=== PATIENT | female | born 1975 | race African-American/Black ===

== ENCOUNTER 2024-05-16 11:49 | Inpatient (IN) | payer OTHER ==
[2024-05-16 12:56] LABS: ABSOLUTE IMMATURE GRANULOCYTES 0.87 x10^3/uL (0.0-0.031); BASOPHILS # 0.05 x10^3/uL (0.01-0.08); EOSINOPHIL % 0.1 % (0.7-5.8); EOSINOPHILS # 0.02 x10^3/uL (0.04-0.36); HEMATOCRIT 30.5 % (34.1-44.9); HEMOGLOBIN 9.7 g/dL (11.2-15.7); MCHC 31.8 g/dl (32.2-35.5); MEAN CELL VOLUME 87.1 fl (79.4-94.8); MONOCYTE # 0.69 x10^3/uL (0.24-0.86); MONOCYTE % 4.8 % (4.7-12.5); PLATELET COUNT # 125 x10^3/uL (182-369)
[2024-05-16 12:59] LABS: VENOUS BASE EXCESS -15.8 mmol/L (-2-2); VENOUS PCO2 31.8 mmHg (38-52)
[2024-05-16 13:08] LABS: INR 1.09 (0.83-1.09)
[2024-05-16 13:10] LABS: ACTIVATED PTT 32.5 SECONDS (25.2-36.5); VENOUS PH 7.173 (7.310-7.410)
[2024-05-16 13:18] LABS: CHLORIDE 80 mmol/L (98-107)
[2024-05-16 13:19] LABS: POTASSIUM 6.8 mmol/L (3.5-5.1); SODIUM 114 mmol/L (136-145)
[2024-05-16] MEDS: LACTATED RINGERS SOLUTION 1000 ML INFUS.BAG IV ONE ×3 (13:20→15:09)
[2024-05-16 13:21] LABS: CALCIUM 9.2 mg/dL (8.5-10.1); MAGNESIUM 3.1 mg/dL (1.8-2.4)
[2024-05-16 13:22] LABS: ALBUMIN 2.6 g/dl (3.4-5.0); ANION GAP 24 mmol/L (4-13); CO2 10 mmol/L (21-32)
[2024-05-16 13:23] LABS: SGPT/ALT 14 U/L (13-61)
[2024-05-16 13:24] LABS: CREATININE 4.6 mg/dL (0.55-1.3); PHOSPHOROUS 6.7 mg/dL (2.5-4.9); SGOT/AST 18 U/L (15-37)
[2024-05-16 13:25] LABS: TOT PROT 5.8 g/dl (6.4-8.2)
[2024-05-16 13:26] LABS: BILIRUBIN,TOTAL 0.6 mg/dL (0.2-1)
[2024-05-16 13:29] LABS: ALK PHOS 88 U/L (45-117)
[2024-05-16 13:41] LABS: BLOOD UREA NITROGEN 125.2 mg/dL (7-18); GLUCOSE,RANDOM 922 mg/dL (74-106)
[2024-05-16 14:13] LABS: HCV DIAGNOSTIC IN-HOUSE W/RFLX NON-REACTIVE (NONREACTIVE); HIV INTERPRETATION NEGATIVE (NEGATIVE)
[2024-05-16] MEDS ORDERED: CALCIUM GLUC IN NACL, ISO-OSM 1 GM/50 ML BAG IVPB ONE (14:21)
[2024-05-16] MEDS: CALCIUM GLUC IN NACL, ISO-OSM 1 GM/50 ML BAG IVPB ONE (14:37)
[2024-05-16 15:03] LABS: EPI CELLS 3 /uL (0-25.1); HYALINE CASTS 0 /uL (0-3.1); URINE APPEARANCE CLOUDY; URINE BACTERIA 8595 /uL (0-1359); URINE BILIRUBIN NEGATIVE (NEGATIVE); URINE COLOR ORANGE; URINE GLUCOSE (UA) 3+ (NEGATIVE); URINE KETONE 1+ (NEGATIVE); URINE LEUK ESTERASE 1+ (NEGATIVE); URINE NITRITE NEGATIVE (NEGATIVE); URINE PROTEIN 2+ (NEGATIVE); URINE RBC 3407 /uL (0-23.9); URINE UROBILINOGEN 0.2 mg/dL (0.2-1.0); URINE WBC 1926 /uL (0-25.8)
[2024-05-16 15:05] LABS: CHLORIDE 82 mmol/L (98-107)
[2024-05-16 15:06] LABS: CALCIUM 8.4 mg/dL (8.5-10.1)
[2024-05-16 15:07] LABS: ALBUMIN 2.1 g/dl (3.4-5.0); CO2 11 mmol/L (21-32)
[2024-05-16 15:10] LABS: CREATININE 4.5 mg/dL (0.55-1.3); SGOT/AST 12 U/L (15-37); SGPT/ALT 11 U/L (13-61)
[2024-05-16 15:11] LABS: BILIRUBIN,TOTAL 0.6 mg/dL (0.2-1); TOT PROT 4.6 g/dl (6.4-8.2)
[2024-05-16 15:13] LABS: ALK PHOS 74 U/L (45-117); ANION GAP 25 mmol/L (4-13); BLOOD UREA NITROGEN 120.6 mg/dL (7-18); GLUCOSE,RANDOM 871 mg/dL (74-106); POTASSIUM 6.5 mmol/L (3.5-5.1); SODIUM 119 mmol/L (136-145)
[2024-05-16 15:25] LABS: HCG,QUALITATIVE URINE Negative
[2024-05-16] MEDS ORDERED: CEFTRIAXONE 1 G/50 ML PREMIX 50 ML IVPB ONE (15:34)
[2024-05-16] MEDS: CEFTRIAXONE 1 GM in DEXTROSE 5%-WATER - 100 ML IVPB ONE (15:56)
[2024-05-16] MEDS: INSULIN REGULAR 100 UNITS in SODIUM CHLORIDE 99 ML IVPB SCH (15:57)
[2024-05-16] MEDS ORDERED: DEXTROSE 50%-WATER - 25 GM/50 ML VIAL IVPUSH PRN (16:26)
[2024-05-16 17:08] LABS: ALLENS TEST POSITIVE; ARTERIAL BLD GAS O2 SATURATION 95.6 % (95-98); ARTERIAL BLOOD GAS BASE EXCESS -14.1 mmol/L (-2-2); ARTERIAL BLOOD GAS PO2 83.5 mmHg (80-100); ARTERIAL BLOOD GAS pH 7.302 (7.350-7.450)
[2024-05-16 17:09] LABS: PT'S TEMP 100.4
[2024-05-16] MEDS ORDERED: INSULIN REGULAR HUMAN 100 UNITS/ML *VIAL ONE (17:23)
[2024-05-16] MEDS ORDERED: ACETAMINOPHEN 325 MG TABLET (FP) PO PRN (17:29)
[2024-05-16] MEDS: INSULIN REGULAR HUMAN 100 UNITS/ML *VIAL* (FOR IVP) IVPUSH ONE (17:35)
[2024-05-16] MEDS: SODIUM CHLORIDE 1,000 ML IV SCH (17:36)
[2024-05-16] MEDS: SODIUM CHLORIDE 1,000 ML IV STA (17:36)
[2024-05-16 19:31] LABS: CHLORIDE 91 mmol/L (98-107); POTASSIUM 5.6 mmol/L (3.5-5.1); SODIUM 125 mmol/L (136-145)
[2024-05-16 19:32] LABS: ANION GAP 22 mmol/L (4-13); CALCIUM 8.6 mg/dL (8.5-10.1); CO2 12 mmol/L (21-32)
[2024-05-16 19:36] LABS: CREATININE 4.3 mg/dL (0.55-1.3)
[2024-05-16 19:42] LABS: BLOOD UREA NITROGEN 111.9 mg/dL (7-18); GLUCOSE,RANDOM 593 mg/dL (74-106)
[2024-05-16] MEDS: FAMOTIDINE 20 MG TABLET PO SCH (20:16)
[2024-05-16] MEDS: NIFEdipine E.R 60 MG TABLET PO SCH (20:19)
[2024-05-16] MEDS: CALCIUM CARBONATE 650 MG TABLET PO SCH (21:10)
[2024-05-16] MEDS: MYCOPHENOLATE SODIUM 360 MG TABLET.DR PO SCH (21:10)
[2024-05-16] MEDS: TACROLIMUS ANHYDROUS 5 MG, TACROLIMUS ANHYDROUS 1 MG PO SCH (21:10)
[2024-05-16] MEDS: ATORVASTATIN CA 10 MG TABLET (FP) PO SCH (21:13)
[2024-05-16] MEDS: SODIUM BICARBONATE 650 MG TABLET PO SCH (21:13)
[2024-05-16] MEDS: FERROUS SO4 325 MG TABLET (FP) PO SCH (21:13)
[2024-05-16] MEDS: MUPIROCIN 2% TOPICAL OINTMENT FOR DECOLONIZATION NS SCH (21:20)
[2024-05-16] MEDS: CHLORHEXIDINE GLUCONATE 4% CLEANSER FOR DECOLONIZATION TP SCH (21:21)
[2024-05-16] MEDS ORDERED: TACROLIMUS ANHYDROUS 1 MG CAPSULE PO SCH ×2 (22:00)
[2024-05-16] MEDS ORDERED: TACROLIMUS ANHYDROUS 5 MG CAPSULE PO SCH (22:00)
[2024-05-16] MEDS: DEXTROSE 5%-NORMAL SALINE 1,000 ML IV SCH (23:24)
[2024-05-17 01:06] LABS: CHLORIDE 96 mmol/L (98-107); SODIUM 129 mmol/L (136-145)
[2024-05-17 01:08] LABS: ANION GAP 14 mmol/L (4-13); CALCIUM 8.6 mg/dL (8.5-10.1); CO2 19 mmol/L (21-32); GLUCOSE,RANDOM 212 mg/dL (74-106)
[2024-05-17 01:12] LABS: CREATININE 4.3 mg/dL (0.55-1.3)
[2024-05-17 02:11] LABS: BLOOD UREA NITROGEN 112.7 mg/dL (7-18)
[2024-05-17] MEDS: DEXTROSE 5%-NORMAL SALINE 1,000 ML IV SCH (02:14)
[2024-05-17] MEDS: ACETAMINOPHEN 1000 MG/100 ML BAG IVPB PRN (06:25)
[2024-05-17 07:13] LABS: HEMATOCRIT 27.4 % (34.1-44.9); HEMOGLOBIN 9.2 g/dL (11.2-15.7); MCHC 33.6 g/dl (32.2-35.5); MEAN CELL VOLUME 81.8 fl (79.4-94.8); PLATELET COUNT # 129 x10^3/uL (182-369); RDW 13.3 % (12.2-17.1)
[2024-05-17] MEDS: INSULIN REGULAR 100 UNITS in SODIUM CHLORIDE 99 ML IVPB SCH (07:25)
[2024-05-17 07:35] LABS: CHLORIDE 98 mmol/L (98-107); POTASSIUM 5.1 mmol/L (3.5-5.1); SODIUM 130 mmol/L (136-145)
[2024-05-17 07:54] LABS: CALCIUM 8.7 mg/dL (8.5-10.1)
[2024-05-17 07:55] LABS: ANION GAP 14 mmol/L (4-13); CO2 18 mmol/L (21-32); GLUCOSE,RANDOM 127 mg/dL (74-106)
[2024-05-17 07:59] LABS: CREATININE 4.2 mg/dL (0.55-1.3)
[2024-05-17 08:06] LABS: BLOOD UREA NITROGEN 107.3 mg/dL (7-18)
[2024-05-17] MEDS ORDERED: PATIENT'S OWN MEDICATION (NON-FORMULARY) (Aspirin [Vazalore] 81 MG Capsule) PO SCH (10:00)
[2024-05-17] MEDS: CHOLECALCIFEROL (VIT D3) 1,000 UNIT (25 MCG) TABLET PO SCH (10:14)
[2024-05-17] MEDS: predniSONE 5 MG TABLET (UD) PO SCH (10:14)
[2024-05-17] MEDS: ASPIRIN COATED 81 MG TABLET.EC PO SCH (10:15)
[2024-05-17] MEDS: MAGNESIUM OXIDE 400 MG TABLET (FP) PO SCH (10:17)
[2024-05-17] MEDS: CEFTRIAXONE 1 G/50 ML PREMIX 50 ML IVPB SCH (10:17)
[2024-05-17 10:37] LABS: CHLORIDE 99 mmol/L (98-107); POTASSIUM 4.7 mmol/L (3.5-5.1); SODIUM 130 mmol/L (136-145)
[2024-05-17 10:38] LABS: CALCIUM 8.3 mg/dL (8.5-10.1)
[2024-05-17 10:39] LABS: ANION GAP 11 mmol/L (4-13); CO2 20 mmol/L (21-32); GLUCOSE,RANDOM 110 mg/dL (74-106)
[2024-05-17 10:42] LABS: CREATININE 4.2 mg/dL (0.55-1.3)
[2024-05-17 10:54] LABS: BLOOD UREA NITROGEN 113.8 mg/dL (7-18)
[2024-05-17] MEDS: INSULIN (NOVOLOG) ASPART 100 UNITS/ML 10ML VIAL SQ ONE (13:07)
[2024-05-17 15:13] VITALS: BMI 26.9
[2024-05-17] MEDS: INSULIN ASPART SLIDING SCALE (NOVOLOG) 1 VIAL SQ SCH ×2 (16:50→21:22)
[2024-05-17] MEDS: SODIUM CHLORIDE 0.9% 500 ML INFUS.BAG IV ONE (16:55)
[2024-05-17] MEDS: PIPERACILLIN/TAZOB 2.25 GM 2.25 GM/50 ML BAG IVPB SCH (17:25)
[2024-05-17] MEDS: SODIUM CHLORIDE 1,000 ML IV SCH (17:31)
[2024-05-17 20:07] LABS: CHLORIDE 99 mmol/L (98-107); POTASSIUM 4.9 mmol/L (3.5-5.1); SODIUM 129 mmol/L (136-145)
[2024-05-17 20:11] LABS: GLUCOSE,RANDOM 353 mg/dL (74-106)
[2024-05-17 20:12] LABS: ALBUMIN 1.8 g/dl (3.4-5.0); ANION GAP 12 mmol/L (4-13); CO2 18 mmol/L (21-32)
[2024-05-17 20:13] LABS: BILIRUBIN,TOTAL 0.5 mg/dL (0.2-1); SGPT/ALT 14 U/L (13-61)
[2024-05-17 20:14] LABS: CREATININE 4.2 mg/dL (0.55-1.3); SGOT/AST 29 U/L (15-37)
[2024-05-17 20:15] LABS: ALK PHOS 81 U/L (45-117)
[2024-05-17 20:23] LABS: BLOOD UREA NITROGEN 112.2 mg/dL (7-18)
[2024-05-17] MEDS: INSULIN GLARGINE (LANTUS) 100 UNITS/ML UNITS SQ SCH (21:22)
[2024-05-18 08:14] LABS: HEMATOCRIT 23.9 % (34.1-44.9); MCHC 33.5 g/dl (32.2-35.5); MEAN CELL VOLUME 82.1 fl (79.4-94.8); PLATELET COUNT # 103 x10^3/uL (182-369); RDW 14.1 % (12.2-17.1)
[2024-05-18 08:22] LABS: CHLORIDE 98 mmol/L (98-107); POTASSIUM 5.1 mmol/L (3.5-5.1); SODIUM 130 mmol/L (136-145)
[2024-05-18 08:24] LABS: CALCIUM 8.6 mg/dL (8.5-10.1)
[2024-05-18 08:25] LABS: ALBUMIN 1.9 g/dl (3.4-5.0); ANION GAP 12 mmol/L (4-13); CO2 20 mmol/L (21-32); MAGNESIUM 2.4 mg/dL (1.8-2.4)
[2024-05-18 08:28] LABS: PHOSPHOROUS 3.5 mg/dL (2.5-4.9); SGOT/AST 25 U/L (15-37); SGPT/ALT 10 U/L (13-61)
[2024-05-18 08:29] LABS: BILIRUBIN,TOTAL 0.5 mg/dL (0.2-1)
[2024-05-18 08:30] LABS: TOT PROT 4.6 g/dl (6.4-8.2)
[2024-05-18 08:31] LABS: ALK PHOS 90 U/L (45-117)
[2024-05-18 08:42] LABS: BLOOD UREA NITROGEN 111.5 mg/dL (7-18); GLUCOSE,RANDOM 418 mg/dL (74-106)
[2024-05-18] MEDS: INSULIN GLARGINE (LANTUS) 100 UNITS/ML UNITS SQ SCH (09:32)
[2024-05-18] MEDS: INSULIN ASPART SLIDING SCALE (NOVOLOG) 1 VIAL SQ SCH (09:34)
[2024-05-18] MEDS: ACETAMINOPHEN 1000 MG/100 ML BAG IVPB PRN (10:23)
[2024-05-18] MEDS: SODIUM CHLORIDE 500 ML IV STA (17:30)
[2024-05-18] MEDS: INSULIN GLARGINE (LANTUS) 100 UNITS/ML UNITS SQ ONE (22:23)
[2024-05-19] MEDS ORDERED: NIFEdipine 10 MG CAPSULE (FP) PO SCH ×2 (06:00)
[2024-05-19] MEDS: INSULIN GLARGINE (LANTUS) 100 UNITS/ML UNITS SQ SCH (06:48)
[2024-05-19 07:55] LABS: HEMATOCRIT 19.7 % (34.1-44.9); HEMOGLOBIN 6.5 g/dL (11.2-15.7); MEAN CELL VOLUME 83.5 fl (79.4-94.8); PLATELET COUNT # 100 x10^3/uL (182-369); RDW 14.3 % (12.2-17.1)
[2024-05-19 08:08] LABS: POTASSIUM 4.5 mmol/L (3.5-5.1)
[2024-05-19 08:18] LABS: ALBUMIN 1.7 g/dl (3.4-5.0); BLOOD UREA NITROGEN 100.4 mg/dL (7-18); MAGNESIUM 2.1 mg/dL (1.8-2.4)
[2024-05-19 08:21] LABS: CREATININE 3.5 mg/dL (0.55-1.3); PHOSPHOROUS 2.9 mg/dL (2.5-4.9)
[2024-05-19 08:22] LABS: BILIRUBIN,TOTAL 0.4 mg/dL (0.2-1); TOT PROT 4.1 g/dl (6.4-8.2)
[2024-05-19 09:46] LABS: HEMATOCRIT 21.1 % (34.1-44.9); HEMOGLOBIN 6.9 g/dL (11.2-15.7); MCHC 32.7 g/dl (32.2-35.5); MEAN CELL VOLUME 83.7 fl (79.4-94.8); PLATELET COUNT # 121 x10^3/uL (182-369); RDW 14.3 % (12.2-17.1)
[2024-05-19] MEDS ORDERED: NIFEdipine E.R. 30 MG TABLET PO SCH (10:00)
[2024-05-19] MEDS: INSULIN ASPART SLIDING SCALE (NOVOLOG) 1 VIAL SQ SCH (10:24)
[2024-05-19 18:02] LABS: HEMOGLOBIN 8.6 g/dL (11.2-15.7); MCHC 33.1 g/dl (32.2-35.5); MEAN CELL VOLUME 83.6 fl (79.4-94.8); PLATELET COUNT # 109 x10^3/uL (182-369); RDW 14.2 % (12.2-17.1)
[2024-05-19] MEDS ORDERED: INSULIN GLARGINE (LANTUS) 100 UNITS/ML UNITS SQ ONE (22:08)
[2024-05-20] MEDS ORDERED: INSULIN GLARGINE (LANTUS) 100 UNITS/ML UNITS SQ ONE (00:14)
[2024-05-20] MEDS: ACETAMINOPHEN 325 MG TABLET (FP) PO PRN (00:58)
[2024-05-20 06:48] LABS: HEMATOCRIT 25.5 % (34.1-44.9); HEMOGLOBIN 8.4 g/dL (11.2-15.7); MCHC 32.9 g/dl (32.2-35.5); PLATELET COUNT # 111 x10^3/uL (182-369); RDW 14.3 % (12.2-17.1)
[2024-05-20] MEDS ORDERED: INSULIN GLARGINE (LANTUS) 100 UNITS/ML UNITS SQ SCH (07:00)
[2024-05-20 07:13] LABS: POTASSIUM 4.6 mmol/L (3.5-5.1)
[2024-05-20 07:15] LABS: ALBUMIN 1.7 g/dl (3.4-5.0); BLOOD UREA NITROGEN 80.7 mg/dL (7-18)
[2024-05-20 07:16] LABS: MAGNESIUM 1.9 mg/dL (1.8-2.4)
[2024-05-20 07:19] LABS: PHOSPHOROUS 2.9 mg/dL (2.5-4.9)
[2024-05-20 07:20] LABS: BILIRUBIN,TOTAL 0.4 mg/dL (0.2-1); TOT PROT 4.3 g/dl (6.4-8.2)
[2024-05-20] MEDS: NIFEdipine E.R. 30 MG TABLET PO SCH (10:06)
[2024-05-20] MEDS: INSULIN GLARGINE (LANTUS) 100 UNITS/ML UNITS SQ SCH (11:57)
[2024-05-20 20:51] VITALS: BP 107/52; PULSE 68; RESP 20; TEMP 98.4
== END 2024-05-20 20:53 | disposition short-term general hospital (02) | DRG 720 ==
LOC: JER 11:49 → JERBED 15:29 → JICU 16:48
PROVIDERS: ADMIT Internal Medicine Pulmonary Disease; ATTEND Internal Medicine
PROC: 30233N1 Transfusion of Nonautologous Red Blood Cells into Peripheral Vein, Percutaneous Approach (ICD-10-PCS; principal; 2024-05-19)
DX: A41.89 Other specified sepsis (principal); N17.9 Acute kidney failure, unspecified; D50.9 Iron deficiency anemia, unspecified; I12.9 Hypertensive chronic kidney disease with stage 1 through stage 4 chronic kidney disease, or unspecified chronic kidney disease; E11.22 Type 2 diabetes mellitus with diabetic chronic kidney disease; N18.9 Chronic kidney disease, unspecified; E78.5 Hyperlipidemia, unspecified; E11.10 Type 2 diabetes mellitus with ketoacidosis without coma; D69.6 Thrombocytopenia, unspecified; E87.5 Hyperkalemia; N39.0 Urinary tract infection, site not specified; R35.0 Frequency of micturition; R63.1 Polydipsia; Z94.0 Kidney transplant status
CPT/HCPCS: 0241U-QW; 36415; 36430; 36600; 71045-TC-FY; 74176-TC; 76775-TC; 80048; 80053; 80197; 81003; 82010; 82803; 82962; 83036; 83605; 83690; 83735; 83930; 84100; 84703; 85025; 85027; 85610; 85730; 86803; 86850; 86900; 86901; 86922; 87040; 87086; 87389; 93005; 93010; 99291; J0131; P9038; P9058